=== PATIENT | female | born 1985 ===

== ENCOUNTER 2018-01-31 21:36 | Emergency (ER) | payer MEDICARE, MEDICAID ==
[2018-01-31 21:47] VITALS: PULSE 100; RESP 20
[2018-01-31 22:37] VITALS: BP 100/68; TEMP 97.3; O2SAT 98
--- NOTE | 2018-02-01 00:39 | C.PDOC ---
Time Seen by Provider: 01/31/18 22:06 Chief Complaint (Nursing): Abdominal Pain Past Medical History Vital Signs: Last Vital Signs Temp 97.3 F L 01/31/18 22:37 Pulse 100 H 01/31/18 22:37 Resp 20 01/31/18 22:37 BP 100/68 01/31/18 22:37 Pulse Ox 98 01/31/18 22:37 - Medical History PMH: Gastritis Family History: States: Unknown Family Hx - Social History Hx Alcohol Use: No (stopped) Hx Substance Use: No ED Course And Treatment O2 Sat by Pulse Oximetry: 98 Disposition - Disposition Disposition: LEFT W/O BEING SEEN - ER ONLY Forms: [employer] (Latvian)
== END 2018-01-31 22:37 | disposition left against medical advice (07) ==
LOC: C.ER 21:36
DX: Z02.89 Encounter for other administrative examinations (principal); R10.9 Unspecified abdominal pain